=== PATIENT | female | born 1995 | race Caucasian/White ===

== ENCOUNTER 2017-12-03 08:11 | Observation (INO) | payer OTHER ==
[2017-12-03] MEDS ORDERED: PNV11TAB PO (08:33)
[2017-12-03 08:35] VITALS: BP 123/78
== END 2017-12-03 09:25 | disposition home or self-care (01) ==
LOC: 4S 08:11
PROVIDERS: ADMIT Obstetrics & Gynecology; ATTEND Obstetrics & Gynecology
DX: O48.0 Post-term pregnancy (principal); Z3A.40 40 weeks gestation of pregnancy
CPT/HCPCS: 59025; G0378